=== PATIENT | male | born 1935 ===

== ENCOUNTER 2017-07-16 07:29 | Outpatient (CLI) | payer OTHER ==
[~2017-07-16] VITALS: Ht 182.9 cm; Wt 2.3 kg
[2017-07-16] MEDS ORDERED: LIPO-FLAVONOID1 EACH PO (08:46)
[2017-07-16] MEDS ORDERED: DERMOTIC20 ML OTIC (08:46)
== END 2017-07-16 07:45 | disposition home or self-care (01) ==
LOC: OFIC 805 07:29
DX: H90.3 Sensorineural hearing loss, bilateral (principal); J31.0 Chronic rhinitis; J34.2 Deviated nasal septum

== ENCOUNTER 2017-08-27 08:55 | Outpatient (CLI) | payer OTHER ==
[~2017-08-27] VITALS: Ht 152.4 cm; Wt 77.1 kg
[~2017-08-27 08:55] MED LIST: DERMOTIC20 ML OTIC; LIPO-FLAVONOID1 EACH PO
== END 2017-08-27 09:15 | disposition home or self-care (01) ==
LOC: OFIC 805 08:55
DX: R42 Dizziness and giddiness (principal); H90.3 Sensorineural hearing loss, bilateral; H61.21 Impacted cerumen, right ear; J31.0 Chronic rhinitis

== ENCOUNTER 2017-10-08 08:37 | Outpatient (CLI) | payer OTHER ==
[~2017-10-08] VITALS: Ht 152.4 cm; Wt 77.1 kg
[2017-10-08] MEDS ORDERED: LIPO-FLAVONOID1 EACH PO (11:18)
== END 2017-10-08 09:00 | disposition home or self-care (01) ==
LOC: OFIC 805 08:37
DX: H90.3 Sensorineural hearing loss, bilateral (principal); J00 Acute nasopharyngitis [common cold]; J34.2 Deviated nasal septum; H81.11 Benign paroxysmal vertigo, right ear; J32.0 Chronic maxillary sinusitis